=== PATIENT | male | born 1990 | race African-American/Black ===

== ENCOUNTER 2017-08-10 15:10 | Emergency (ER) | payer OTHER ==
--- NOTE | 2017-08-10 16:22 | RAD ---
RIGHT KNEE FOUR VIEWS: 08/10/17 HISTORY: 27-year-old male with history of right knee pain following a fall in a store. There is artifact overlying the knee which somewhat obscures it from patient's clothes. No evidence f or acute fracture or dislocation. IMPRESSION: No acute fracture or dislocation. The knee is somewhat obscured by artifact. POS: [facility]
--- NOTE | 2017-08-10 16:28 | RAD ---
PORTABLE CHEST ONE VIEW: 08/10/17 at 3:19 p.m. HISTORY: Fall. FINDINGS: Comparison is made with the exam of 11/20/14. The heart size is normal. the lungs are expanded without focal areas of consolidation, pneumothorax o r pleural effusions. IMPRESSION: No radiographic evidence of acute cardiopulmonary process. POS: [facility]
--- NOTE | 2017-08-10 16:35 | RAD ---
AP PELVIS RADIOGRAPH: 08/10/17 HISTORY: Injury after a fall. FINDINGS: No fracture or dislocation is seen. Bowel gas overlies the sacrum limiting adequate evaluation of the sacrum. There is a sclerotic density in the left superior acetabular region likely related to a smal l bone island. Surgical clips overlie the left lower quadrant and left hemipelvis. IMPRESSION: No acute osseous abnormality. POS: [facility]
== END 2017-08-10 18:33 | disposition home or self-care (01) ==
LOC: ERS 15:10
DX: Z04.3 Encounter for examination and observation following other accident (principal); E78.5 Hyperlipidemia, unspecified; J45.909 Unspecified asthma, uncomplicated; F31.9 Bipolar disorder, unspecified; Z79.899 Other long term (current) drug therapy
CPT/HCPCS: 71045; 72170

== ENCOUNTER 2018-01-25 13:43 | Emergency (ER) | payer OTHER | END 2018-01-25 14:23 | disposition left against medical advice (07) | LOC: ERS 13:43 | DX: Z53.21 Procedure and treatment not carried out due to patient leaving prior to being seen by health care provider (principal) ==

== ENCOUNTER 2018-02-17 21:34 | Emergency (ER) | payer OTHER ==
[2018-02-17] MEDS ORDERED: Cyclobenzaprine 10 MG TAB ONE (22:00)
[2018-02-17] MEDS ORDERED: traMADol HCl 50 MG TAB ONE (22:00)
== END 2018-02-17 23:34 | disposition home or self-care (01) ==
LOC: ERS 21:34
DX: G44.209 Tension-type headache, unspecified, not intractable (principal); E78.5 Hyperlipidemia, unspecified; J45.909 Unspecified asthma, uncomplicated; F31.9 Bipolar disorder, unspecified; Z79.899 Other long term (current) drug therapy
CPT/HCPCS: 99284

== ENCOUNTER 2018-02-20 18:53 | Emergency (ER) | payer OTHER ==
[2018-02-20 19:37] LABS: Hemoglobin 13.6 g/dL (14.0-18.0); Mean Corpuscular HGB CONC 33.9 g/dL (32.0-36.0); Mean Corpuscular Hemoglobin 28.6 pg (27.0-31.0); Mean Corpuscular Volume 84.1 fL (78.0-98.0); Mean Platelet Volume 10.2 fL (7.4-10.4); Platelet Count 133 thou/uL (130-400); RBC Distribution Width 12.6 % (11.5-14.5); Red Blood Cell (RBC) Count 4.76 mill/uL (4.70-6.10); White Blood Cell (WBC) Count 4.3 thou/uL (4.8-10.8)
[2018-02-20 19:56] LABS: Acetaminophen Less than 6.0 mcg/mL (10.0-30.0); Alcohol Less than 10 mg/dL (Less than 10); Salicylate Less than 8.0 mg/dL (15.0-30.0)
[2018-02-20 19:57] LABS: ALT (SGPT) 26 U/L (8-55); AST (SGOT) 12 U/L (5-34); Albumin 4.1 g/dL (3.5-5.0); Alkaline Phosphatase 64 U/L (40-150); Anion Gap 11 mmol/L (10-20); BUN (Urea Nitrogen) 10 mg/dL (8.9-20.6); Bilirubin, Total 0.4 mg/dL (0.2-1.2); CK (CPK) 122 U/L (30-200); Calc. Creatinine Clearance 0 mL/min (70-130); Calcium 9.5 mg/dL (7.8-10.44); Carbon Dioxide 27 mmol/L (22-29); Chloride 103 mmol/L (98-107); Estimated GFR-MDRD Greater than 90; Globulin 2.8 g/dL (2.4-3.5); Potassium 4.6 mmol/L (3.5-5.1); Protein, Total 6.9 g/dL (6.0-8.3); Sodium 136 mmol/L (136-145)
[2018-02-20 19:58] LABS: Eosinophils 1 % (0-10); Lymphocytes 39 % (21-51); MDiff Complete? YES; Monocytes 13 % (0-10); Neutrophil 44 % (42-75); PLT Morphology Comment Appears Adequate; RBC Morphology Normal; Reactive Lymphocytes 1 % (0-10)
[2018-02-20 20:48] LABS: Glucose 52 mg/dL (70-105)
--- NOTE | 2018-02-20 21:04 | RAD ---
RIGHT FOOT RADIOGRAPH THREE VIEWS: 02/20/18 PROVIDED CLINICAL HISTORY: Right foot swelling. FINDINGS: There is marked soft tissue prominence at the dorsum of the foot. Surgical clips are seen at the ant erior aspect of the distal foreleg. There is no evidence for fracture or other acute osseous abnormal ity. If there is persistent clinical concern, conservative management and followup imaging are advise d. IMPRESSION: As above. POS: [facility]
[2018-02-20] MEDS ORDERED: Cephalexin 250 MG CAP ONE (21:57)
[2018-02-20 23:18] LABS: Bilirubin Negative (Negative); Blood, Urine Negative (Negative); Clarity CLEAR (Clear); Glucose, Urine (Dipstick) Negative (Negative); Leukocyte Negative (Negative); Nitrite Negative (Negative); Protein, Urine (Dipstick) Negative (Neg-Trace); Specific Gravity, Urine 1.017 (1.002-1.036); Urobilinogen 0.2 mg/dL (0.2-1.0); pH, Urine 5.5 (5.0-9.0)
[2018-02-20 23:27] LABS: Amphetamine Not Detected (NotDetected); Barbiturates Screen Not Detected (NotDetected); Benzodiazepine Screen Not Detected (NotDetected); Cocaine Metabolite Screen Not Detected (NotDetected); Medtox Control Line Valid? VALID (VALID); Medtox Reader # READER 1; Methadone Not Detected (NotDetected); Methamphetamine Not Detected (NotDetected); Opiate Screen Not Detected (NotDetected); Oxycodone Screen Not Detected (NotDetected); Phencyclidine (PCP) Not Detected (NotDetected); THC/Cannabinoid Screen Detected (NotDetected); Tricyclic Screen Not Detected (NotDetected)
[2018-02-21] MEDS ORDERED: Propranolol 40 MG TAB PO SCH ×2 (10:00→19:30)
[2018-02-21] MEDS ORDERED: Cephalexin 250 MG CAP ONE ×2 (10:08→21:13)
[2018-02-22] MEDS ORDERED: Propranolol 40 MG TAB PO SCH (07:00)
[2018-02-22] MEDS ORDERED: Cephalexin 250 MG CAP PO SCH (07:00)
== END 2018-02-22 14:08 | disposition home or self-care (01) ==
LOC: ERS 18:53
DX: F32.9 Major depressive disorder, single episode, unspecified (principal); L03.031 Cellulitis of right toe; R45.851 Suicidal ideations; E78.5 Hyperlipidemia, unspecified; J45.909 Unspecified asthma, uncomplicated; F31.9 Bipolar disorder, unspecified; Z79.899 Other long term (current) drug therapy
CPT/HCPCS: 36415; 36416; 80053; 80306; 80307; 81003; 82550; 84443; 85025

== ENCOUNTER 2018-10-23 12:02 | Outpatient (CLI) | payer OTHER ==
[2018-10-23] MEDS ORDERED: Gadobenate Dimeglumine 529 MG/1 ML (20ML VIAL) ONE ×2 (15:52)
--- NOTE | 2018-10-23 16:00 | MRI ---
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 Tremors. Follow-up of abnormal T -spine MRI. COMPARISON: 09/21/2016. FINDINGS: There is kyphosis, with apex of curvature at approximately T6-7. There is levoscoliosis with apex of curvature also at approximately T6-7. Mild anterior wedge compression deformities of T6 and T7 without bone marrow edema. No central spinal canal stenosis at any level. Instead, the spinal canal a nd thecal sac are capacious throughout the thoracic spine. Conus medullaris terminates at L1. The spinal cord has a somewhat distorted, triangular shape as seen on axial images, as previously demonst rated. On the previous T2 weighted axial images, pulsation artifact from the aorta degraded the images of the spinal cord on axial T2-weighted sequence. Currently, there is the same pulsation artif act, but it is slightly less severe. There does appear to be intramedullary T2 hyperintense signal abnormality throughout most of the thoracic spinal cord, but without abnormal enhancement. The previously described very irregularly-shaped, enhancing infiltrative lesion in the left anterior prevertebral space at the upper levels of the thoracic spine, contiguous with the left medial pleura, has not significantly changed. It is hyperintense on T2-weighted images and STIR, is hypointe nse on precontrast T1-weighted images, and enhances. Upper extent is at approximately C7-T1 level, surrounding the left first rib proximal aspect. That first rib is a severely narrowed ribbon rib, see n in NF type I. Its inferior edge is at T4-5. It scallops the left side of the body of T2. IMPRESSION: 1. 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 It invades the left C7-T1 and left T1-2 neural foramina, and additional left neural foramina in the cerv ical spine. These are manifestations of neurofibromatosis type I. 2. Kyphoscoliosis. This is a manifestation of neurofibromatosis type I. 3. Diffuse dural ectasia. This is a manifestation of neurofibromatosis type I. 4. Extensive intramedullary signal abnormality throughout the entire thoracic spinal cord. This may r epresent demyelinating plaque of multiple sclerosis as mentioned in the history. 5. No significant interval change since 2017.
--- NOTE | 2018-10-23 16:44 | MRI ---
BRAIN MRI WITH AND WITHOUT CONTRAST: 10/23/18 HISTORY: Multiple sclerosis. Tremors. COMPARISON: 08/25/16, 03/29/14. FINDINGS: No hemorrhage on the axial gradient sequence. Calvarium has a normal T1 marrow signal intensity. Midline brain parenchymal structures are unremarka ble. Essentially stable T2 and FLAIR white matter hyperintensities. Redemonstration of abnormal signal int ensity involving the posterior right aspect of the corpus callosum measuring 2.2 x 1.2 cm (previously measuring 1.3 x 2.8 cm). There are no new significant T2 or FLAIR white matter hyperintensities. The re is no evidence of enhancement or restricted diffusion to suggest active demyelination. Cortical cole-white matter differentiation is preserved. Brain volume less than expected for patient's age. Central arterial flow voids are maintained. Small mucous retention cyst in the left maxillary sinus. No pathologic enhancement of the brain parenchyma. IMPRESSION: 1. Extensive T2 and FLAIR white matter hyperintensities, compatible with patient's history of mu ltiple sclerosis. Absent restricted diffusion. Absent enhancement. No evidence of an actively demyeli nating plaque. 2. Brain volume, less than expected for patient's age. POS: [facility]
--- NOTE | 2018-10-23 17:48 | MRI ---
CERVICAL SPINE MRI WITH AND WITHOUT CONTRAST: 10/23/18 COMPARISON: Cervical spine MRI 09/21/16. HISTORY: Multiple sclerosis. TECHNIQUE: Multiplanar and multisequence MR imaging of the cervical spine provided with and without contrast. FINDINGS: The sagittal STIR imaging is limited by motion and demonstrates no obvious evidence for focal osseous marrow edema. There is no anterolisthesis or retrolisthesis seen within the cervical spine. The craniocervical junc tion, atlantoaxial interspace, and cervicothoracic junction appears intact. The imaged cerebellum demonstrates numerous foci of abnormal increased signal intensity consistent wi th the patient's history of multiple sclerosis. Foci of abnormal signal intensity are also seen withi n the imaged portion of the medulla inferiorly, as seen on prior imaging. There is a focus of increas ed signal intensity within the upper cervical cord to the right of midline at the axial level of the foramen magnum, stable. There are numerous foci of abnormal signal intensity on the T2 weighted imagi ng within the cervical cord, including the dorsa aspect of the cervical cord at the C2, C3 and C4 lev els. There is a small T2 hyperintense lesion within the left aspect of the cord measuring approximate ly 3 mm at the axial level of the C5 vertebral body which is likely new. Stable dorsal abnormal signa l intensity within the cervical cord at the C5-6 level and C6-7 level. C2-3: No significant central canal or neural foraminal stenosis. C3-4: No significant central canal or neural foraminal stenosis. C4-5: No significant central canal or neural foraminal stenosis. C5-6: No significant central canal or neural foraminal stenosis. C6-7: No significant central canal or neural foraminal stenosis. C7-T1: Probable right neural foraminal stenosis on the basis of facet and uncovertebral osteophyte fo rmation. No central canal or left neural foraminal stenosis. The postcontrast imaging demonstrates no abnormal enhancement involving the cervical cord associated with the above demyelinating plaques. There is an incompletely assessed enhancing lesion anterior to the C7 and T1 level to the left of midline anteriorly which is a stable finding, better assessed on C T examination of chest performed 10/06/16 and MRI of thoracic spine with and without contrast also perf ormed 10/23/18. IMPRESSION: 1. Stable foci of abnormal signal intensity within the cervical cord consistent with the patient 's history of demyelinating disease. No enhancing lesions are noted. 2. Nonspecific enhancing mass lesion associated with the anterior paraspinal soft tissues of the lower cervical and upper thoracic spine to the left of midline, better assessed on thoracic spine MR I. This may represent a plexiform neurofibroma. POS: [facility]
== END 2018-10-23 12:03 | disposition home or self-care (01) ==
LOC: BICMRI 12:02
PROVIDERS: ATTEND Nurse Practitioner Acute Care
DX: G35 Multiple sclerosis (principal); D36.10 Benign neoplasm of peripheral nerves and autonomic nervous system, unspecified; M41.9 Scoliosis, unspecified; G96.19 Other disorders of meninges, not elsewhere classified; M79.9 Soft tissue disorder, unspecified
CPT/HCPCS: 70553; 72156; 72157; A9577

== ENCOUNTER 2019-02-23 16:31 | Emergency (ER) | payer OTHER ==
[~2019-02-23 16:31] MED LIST: Magnevist 469MG/ML 20 ML VIAL ONE
[2019-02-23 17:45] LABS: #Basophils 0.1 thou/uL (0.0-0.2); #Lymphocytes 0.6 thou/uL (1.20-3.40); #Monocytes 0.7 thou/uL (0.11-0.59); #Neutrophils 4.1 thou/uL (1.40-6.50); %Basophils 1.1 % (0.0-1.0); %Eosinophils 0.6 % (0.0-10.0); %Lymphocytes 11.5 % (21.0-51.0); %Monocytes 12.9 % (0.0-10.0); Hemoglobin 14.2 g/dL (14.0-18.0); Mean Corpuscular HGB CONC 34.7 g/dL (32.0-36.0); Mean Corpuscular Hemoglobin 28.7 pg (27.0-31.0); Mean Corpuscular Volume 82.8 fL (78.0-98.0); Mean Platelet Volume 9.7 fL (7.4-10.4); Platelet Count 188 thou/uL (130-400); RBC Distribution Width 13.3 % (11.5-14.5); Red Blood Cell (RBC) Count 4.94 mill/uL (4.70-6.10); White Blood Cell (WBC) Count 5.5 thou/uL (4.8-10.8)
[2019-02-23 18:01] LABS: ALT (SGPT) 55 U/L (8-55); AST (SGOT) 15 U/L (5-34); Albumin 4.7 g/dL (3.5-5.0); Alkaline Phosphatase 77 U/L (40-110); Anion Gap 13 mmol/L (10-20); BUN (Urea Nitrogen) 11 mg/dL (8.9-20.6); Bilirubin, Total 0.7 mg/dL (0.2-1.2); CK (CPK) 115 U/L (30-200); Calc. Creatinine Clearance 0 mL/min (70-130); Calcium 9.8 mg/dL (7.8-10.44); Carbon Dioxide 26 mmol/L (22-29); Chloride 103 mmol/L (98-107); Estimated GFR-MDRD Greater than 90; Glucose 86 mg/dL (70-105); Potassium 3.9 mmol/L (3.5-5.1); Protein, Total 7.7 g/dL (6.0-8.3); Sodium 138 mmol/L (136-145)
--- NOTE | 2019-02-23 18:50 | RAD ---
PORTABLE CHEST: History: Fever. Lower extremity weakness. Comparison: 08-10-17 FINDINGS: Heart size and mediastinum are within normal limits. The lungs are clear of any focal infiltrates. No significant bony findings. IMPRESSION: No active intrathoracic disease. POS: [facility]
--- NOTE | 2019-02-23 19:00 | CT ---
CT OF BRAIN PERFORMED WITHOUT CONTRAST ENHANCEMENT: History: Generalized weakness to bilateral lower extremities, onset this morning. Multiple sclerosis. Comparison: 03-29-14 as well as an MRI study of 10-23-18. FINDINGS: Ventricular and cisternal system is mildly prominent for age. Areas of decreased attenuation of the p eriventricular white matter are more chronic in appearance and are compatible with the history of mul tiple sclerosis. No hemorrhage or mass effect demonstrated. IMPRESSION: Periventricular white matter changes most compatible with changes related to patient's multiple scler osis. It may be helpful to obtain a follow up MRI on a non-emergent basis for comparison to the previ ous MRI study for change. POS: [facility]
--- NOTE | 2019-02-23 20:23 | MRI ---
MRI THORACIC SPINE PERFORMED WITH AND WITHOUT CONTRAST ENHANCEMENT: Comparison: 10-23-18 History: Patient has a history of neurofibromatosis. Also MS. Numbness in bilateral legs. FINDINGS: Scoliotic change to the spine is again noted. Dural ectasia is again seen. The area of enhancement along the left side of the upper thoracic spine extending from the C7-T1 leve l to approximately the T4-5 level is felt to represent plexiform neurofibromatosis changes and is sta ble. There is also some slightly asymmetric changes seen on the left side at the T7 level. This is si milar to the prior examination. I am not sure if this asymmetry is just being caused by the scoliosis of this represents some other plexiform changes. The cord is somewhat atrophic in appearance with changes that are similar to the previous exam. No si gns for canal stenosis. IMPRESSION: 1. Kyphoscoliosis and dural ectasia. These would be characteristic of dural fibromatosis type I. 2. 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 There is also a questionable slight area of asymmetric enhancement o n the left side at T7, also unchanged. 3. No signs of canal stenosis. 4. Atrophic appearing cord, unchanged since the prior exam. POS: [facility]
[2019-02-23] MEDS ORDERED: traMADol HCl 50 MG TAB ONE (21:15)
--- NOTE | 2019-02-23 21:16 | MRI ---
MRI LUMBAR SPINE PERFORMED WITH AND WITHOUT CONTRAST ENHANCEMENT: History: Bilateral lower extremity numbness. History of neurofibromatosis and multiple sclerosis. FINDINGS: Vertebral bodies maintain normal height. There is prominent scalloping of the posterior margins of L4 , L5, and to a lesser extent S1, with marked dural ectasia which is characteristic of neurofibromatos is. There are no signs of canal or foraminal stenosis. There is enhancement and scalloping along the left sacrum. This is consistent with an area of plexifo rm neurofibroma, partially visualized on this examination. IMPRESSION: Marked dural ectasia and scalloping to the posterior borders of L4, L5 and S1. Changes are compatible with neurofibromatosis. 2. Enhancement and scalloping along the posterior border of the left side of the sacrum. These change s are compatible with a plexiform neurofibroma in this area. 3. No signs of any canal stenosis. POS: [facility]
--- NOTE | 2019-02-23 23:02 | PDOC.BPN ---
<Kashmir Decker - Last Filed: 02/23/19 23:13> - Brief Progress Note I, Kashmir Decker, DO have sen and examined the patient with Dr. Cazares and agree with the above history and physical exam. Pt with PMH of NF1 and MS presents for generalized weakness; however, on exam for admission pt reports improvement in symptoms. Offered admission vs close OP f/u and pt opted for close OP f/u and to be seen in clinic tomorrow. ER workup negative for acute process. Physical exam and HPI consistent with viral URI. Flu neg in ER. Recommend symptomatic control with OTC medications and adequate po fluid hydration. Pt discahrged to home from ER with instruction to f/u in clinic tomorrow. PRN medications for URI symptoms control. <Georgi Cazares - Last Filed: 02/24/19 07:16> - Brief Progress Note HPI: Pt presented to the ED tonight w/ complaints of BLE generalized weakness. Pt has PMHx of neurofribromatosis type 1 and multiple sclerosis. Pt and accompanying lanolin plant operator stated that he felt fine upon waking this morning but when lanolin plant operator returned this afternoon he was unable to get himself out of bed. Pt normally gets around home utilizing a wheelchair 2/2 chronic lower extremity weakness. Pt states that this generalized lower extremity weakness has occurred several times in the past and he has treated it with rest and his sx normally resolve within 24 hours. Lead Applications Developer called EMS tonight because she was unable to get into the patients apartment since he was stuck in bed. She then convinced the pt to come in to be evaluated. Pt last received steroids over a month, he states this was for increased tremor sx. ROS: + Low grade fever, congestion, dry cough, lower extremity weakness, fatigue - Chills, nausea, vomiting, diarrhea, abdominal pain, SOB, CP, headache PE: Gen: NAD, awake, alert, oriented HEENT: Pale TM, MMM, mild erythema of posterior oropharynx, chronic decreased vision RESP: CTAB, no resp distress CARD: RRR, no murmur MSK: 1/5 strength of bilateral LE (pt and lanolin plant operator reports near baseline), 4/5 strength of bilateral upper extremities SKIN: Diffuse neurofibromas A/P Viral Illness - Sx and low grade fever suggestive of viral URI - In setting of MS pt viral illness can manifest w/ neurologic sx as above - CT brain and Spine MRI negative for new lesions or acute changes - Laboratory workup negative for signs of bacterial infection - Vitals Stable Findings were discussed w/ pt and lanolin plant operator. Admission with continued monitoring was offered to the pt but he adamantly requested discharge to home. He and lanolin plant operator were made aware of risks and return precautions and expressed understanding. Pt and lanolin plant operator agreed to follow up in clinic tomorrow. Georgi Cazares PGY 1 <Jose Stanley - Last Filed: 02/24/19 08:46> Addendum - Attending - Attending Attestation Date/Time: 02/24/19 [id number] I personally evaluated the patient and discussed the management with Dr. Brianne Cazares. I agree with the History, Examination, Assessment and Plan documented above with any addition or exceptions noted below. Mr Schroeder has a viral URI, and may be having a MS flare, but he does not quite meet the clinical criteria. We encouraged overnight observation, but [employer] declined. He is willing to have appt in the morning at our clinic in follow up. This will be reasonable given his normal vitals and near baseline motor function.
== END 2019-02-23 22:25 | disposition home or self-care (01) ==
LOC: ERS 16:31
DX: M62.81 Muscle weakness (generalized) (principal); E78.5 Hyperlipidemia, unspecified; E78.00 Pure hypercholesterolemia, unspecified; J45.909 Unspecified asthma, uncomplicated; G35 Multiple sclerosis; Z79.899 Other long term (current) drug therapy
CPT/HCPCS: 36415; 70450; 71045; 72157; 72158; 80053; 82550; 85025; 85652; 86140; 87040; 87804; A9579

== ENCOUNTER 2019-04-17 10:48 | Emergency (ER) | payer OTHER ==
--- NOTE | 2019-04-17 11:42 | RAD ---
PA AND LATERAL CHEST: Date: 04/17/2019 HISTORY: Cough and congestion. FINDINGS: Heart size and mediastinum are within normal limits. Lungs are clear of any focal infiltrates. No sig nificant bony findings. IMPRESSION: No active intrathoracic disease. POS: [facility]
== END 2019-04-17 12:08 | disposition home or self-care (01) ==
LOC: ERS 10:48
DX: J18.9 Pneumonia, unspecified organism (principal); E78.5 Hyperlipidemia, unspecified; E78.00 Pure hypercholesterolemia, unspecified; J45.909 Unspecified asthma, uncomplicated; Z79.899 Other long term (current) drug therapy
CPT/HCPCS: 71046

== ENCOUNTER 2019-06-30 20:59 | Emergency (ER) | payer OTHER ==
[2019-06-30] MEDS ORDERED: HYDROcodone/Acetaminophen 5/325 mg Tablet ONE (21:33)
== END 2019-06-30 22:13 | disposition home or self-care (01) ==
LOC: ERS 20:59
DX: M54.2 Cervicalgia (principal); E78.5 Hyperlipidemia, unspecified; J45.909 Unspecified asthma, uncomplicated; W01.0XXA Fall on same level from slipping, tripping and stumbling without subsequent striking against object, initial encounter
CPT/HCPCS: 99283

== ENCOUNTER 2019-07-19 19:02 | Emergency (ER) | payer OTHER ==
[2019-07-19 20:54] LABS: #Basophils 0.1 thou/uL (0.0-0.2); #Eosinphils 0.1 thou/uL (0.0-0.7); #Lymphocytes 1.9 thou/uL (1.20-3.40); #Monocytes 0.6 thou/uL (0.11-0.59); %Basophils 1.2 % (0.0-1.0); %Eosinophils 1.5 % (0.0-10.0); %Lymphocytes 33.6 % (21.0-51.0); %Monocytes 10.6 % (0.0-10.0); Hemoglobin 14.9 g/dL (14.0-18.0); Mean Corpuscular HGB CONC 33.3 g/dL (32.0-36.0); Mean Corpuscular Hemoglobin 28.2 pg (27.0-31.0); Mean Corpuscular Volume 84.7 fL (78.0-98.0); Mean Platelet Volume 10.6 fL (7.4-10.4); Platelet Count 191 thou/uL (130-400); RBC Distribution Width 13.7 % (11.5-14.5); Red Blood Cell (RBC) Count 5.28 mill/uL (4.70-6.10); White Blood Cell (WBC) Count 5.6 thou/uL (4.8-10.8)
[2019-07-19 21:15] LABS: ALT (SGPT) 68 U/L (8-55); AST (SGOT) 24 U/L (5-34); Albumin 4.6 g/dL (3.5-5.0); Alkaline Phosphatase 81 U/L (40-110); Anion Gap 15 mmol/L (10-20); BUN (Urea Nitrogen) 13 mg/dL (8.9-20.6); Bilirubin, Total 0.4 mg/dL (0.2-1.2); Calc. Creatinine Clearance 0 mL/min (70-130); Carbon Dioxide 24 mmol/L (22-29); Chloride 104 mmol/L (98-107); Estimated GFR-MDRD Greater than 90; Globulin 3.2 g/dL (2.4-3.5); Glucose 74 mg/dL (70-105); Potassium 3.5 mmol/L (3.5-5.1); Protein, Total 7.8 g/dL (6.0-8.3); Sodium 139 mmol/L (136-145)
[2019-07-19] MEDS ORDERED: Dexamethasone 4 mg/ml Vial ONE (23:17)
--- NOTE | 2019-07-20 07:35 | CT ---
CT OF THE BRAIN WITHOUT CONTRAST: Date: 07/19/2019 COMPARISON: 02/23/2019. HISTORY: Weakness. Multiple sclerosis with possible MS flair. TECHNIQUE: Multiple contiguous axial images were obtained in a CT of the brain without contrast. FINDINGS: There are scattered hypodensities in the subcortical and periventricular white matter, likely seconda ry to the patient's known MS. These are grossly unchanged compared to the prior examination. There is no evidence of hydrocephalus, intracranial hemorrhage, or extra-axial fluid collection. The calvarium and overlying soft tissues are unremarkable. The visualized paranasal sinuses and masto id air cells are well aerated. IMPRESSION: 1. No obvious acute intracranial abnormality. 2. Hypodensities in the white matter likely secondary to patient's known MS. POS: [facility]
== END 2019-07-19 23:05 | disposition home or self-care (01) ==
LOC: ERS 19:02
DX: R53.1 Weakness (principal); E78.5 Hyperlipidemia, unspecified; E78.00 Pure hypercholesterolemia, unspecified; J45.909 Unspecified asthma, uncomplicated; G35 Multiple sclerosis; F31.9 Bipolar disorder, unspecified; Z79.899 Other long term (current) drug therapy
CPT/HCPCS: 36415; 70450; 80053; 85025; 96374; J1100

== ENCOUNTER 2019-07-21 19:08 | Emergency (ER) | payer OTHER ==
[2019-07-21] MEDS ORDERED: traMADol HCl 50 MG TAB ONE (20:15)
--- NOTE | 2019-07-21 20:42 | CT ---
Exam: Thoracic spine CT without contrast HISTORY: Fall. Pain. Trauma. Multiple sclerosis. Neural fibromatosis. COMPARISON: None Correlation: Thoracic spine MRI 02/23/2019 FINDINGS: Stable rightward scoliotic curvature of the thoracic spine. Central spinal canal and neural foramina are patent. Evaluation is limited due to technique. Thoracic spine vertebral body height is maintained. No thoracic spine fracture. No paraspinal hematom a or fat stranding. Visualized trachea and central bronchi are patent. Chronic lung parenchymal changes are suspected. Sm all blebs in the right lower lobe. IMPRESSION: No fracture.
--- NOTE | 2019-07-21 20:55 | CT ---
Exam: Lumbar spine CT without contrast HISTORY: Trauma. Pain. Fall. History of neurofibromatosis and sclerosis COMPARISON: None Correlation: Lumbar spine MRI 02/23/2019 FINDINGS: Lumbar spine vertebral body height is maintained. No fractures. No spondylolisthesis or spondylolysis . No paraspinal or retroperitoneal mass, lymphadenopathy or hematoma. Limited evaluation of the contents of the central spinal canal and neural foramina due to technique. No evidence of significant central canal stenosis. There is prominence of the central spinal canal at L4, L5 and S1 with bony remodeling of the associated vertebral body, compatible with dural ectasia . Findings are similar to previous MRI. Visualized sacrum and bony pelvis appear to be intact. Residual fat appears to be preserved. IMPRESSION: No fracture.
== END 2019-07-21 22:46 | disposition home or self-care (01) ==
LOC: ERS 19:08
DX: M54.6 Pain in thoracic spine (principal); M54.5 Low back pain; G35 Multiple sclerosis; E78.5 Hyperlipidemia, unspecified; E78.00 Pure hypercholesterolemia, unspecified; J45.909 Unspecified asthma, uncomplicated; F31.9 Bipolar disorder, unspecified; Z79.899 Other long term (current) drug therapy; W01.0XXA Fall on same level from slipping, tripping and stumbling without subsequent striking against object, initial encounter
CPT/HCPCS: 72128; 72131

== ENCOUNTER 2021-09-19 18:49 | Emergency (ER) | payer OTHER ==
[2021-09-19] MEDS ORDERED: Ketorolac Tromethamine 30 MG/ML VIAL ONE (19:09)
== END 2021-09-19 20:50 | disposition home or self-care (01) ==
LOC: ERS 18:49
DX: S16.1XXA Strain of muscle, fascia and tendon at neck level, initial encounter (principal); E78.5 Hyperlipidemia, unspecified; E78.00 Pure hypercholesterolemia, unspecified; J45.909 Unspecified asthma, uncomplicated; G35 Multiple sclerosis; W05.0XXA Fall from non-moving wheelchair, initial encounter; Y92.002 Bathroom of unspecified non-institutional (private) residence as the place of occurrence of the external cause
CPT/HCPCS: 72125; 96374; J1885

== ENCOUNTER 2022-12-09 23:42 | Emergency (ER) | payer OTHER ==
[2022-12-10 00:39] LABS: #Eosinphils 0.1 thou/uL (0.0-0.7); #Monocytes 0.4 thou/uL (0.11-0.59); #Neutrophils 2.9 thou/uL (1.40-6.50); %Basophils 0.9 % (0.0-1.0); %Eosinophils 1.5 % (0.0-10.0); %Lymphocytes 26.2 % (21.0-51.0); %Monocytes 8.4 % (0.0-10.0); %Neutrophils 62.6 % (42.0-75.0); Hematocrit 45.5 % (42.0-52.0); Hemoglobin 15.4 g/dL (14.0-18.0); Mean Corpuscular HGB CONC 33.8 g/dL (32.0-36.0); Mean Corpuscular Hemoglobin 27.3 pg (27.0-31.0); Mean Corpuscular Volume 80.7 fl (78.0-98.0); Mean Platelet Volume 11.5 fL (7.4-10.4); Platelet Count 254 10x3/uL (130-400); RBC Distribution Width 14.4 % (11.5-14.5); Red Blood Cell (RBC) Count 5.64 mill/uL (4.70-6.10); White Blood Cell (WBC) Count 4.7 10x3/uL (4.8-10.8)
[2022-12-10 01:04] LABS: ALT (SGPT) 19 U/L (8-55); AST (SGOT) 11 U/L (5-34); Albumin 4.7 g/dL (3.5-5.0); Alkaline Phosphatase 82 U/L (40-110); Anion Gap 15 mmol/L (10-20); BUN (Urea Nitrogen) 14 mg/dL (8.9-20.6); Bilirubin, Total 0.7 mg/dL (0.2-1.2); CK (CPK) 95 U/L (30-200); Calc. Creatinine Clearance 0 mL/min (70-130); Calcium 10.3 mg/dL (7.8-10.44); Carbon Dioxide 27 mmol/L (22-29); Chloride 103 mmol/L (98-107); Estimated GFR 118; Globulin 3.5 g/dL (2.4-3.5); Glucose 84 mg/dL (70-105); Potassium 4.2 mmol/L (3.5-5.1); Protein, Total 8.2 g/dL (6.0-8.3); Sodium 141 mmol/L (136-145)
[2022-12-10] MEDS ORDERED: Iopamidol-370 76% 500 ML MDV (1 ML CHARGE) ONE (10:15)
== END 2022-12-10 08:51 | disposition home or self-care (01) ==
LOC: ERS 23:42
DX: S80.01XA Contusion of right knee, initial encounter (principal); M54.50 Low back pain, unspecified; K56.41 Fecal impaction; E78.00 Pure hypercholesterolemia, unspecified; W18.30XA Fall on same level, unspecified, initial encounter
CPT/HCPCS: 36415; 70450; 71260; 72125; 74177; 80053; 82550; 85025; Q9967

== ENCOUNTER 2022-12-13 22:38 | Inpatient (IN) | payer OTHER ==
[~2022-12-13 22:38] MED LIST changes: +Iopamidol-370 76% 500 ML MDV (1 ML CHARGE) ONE; -Magnevist 469MG/ML 20 ML VIAL ONE
[2022-12-13 23:35] LABS: #Monocytes 0.6 thou/uL (0.11-0.59); %Basophils 0.6 % (0.0-1.0); %Eosinophils 0.5 % (0.0-10.0); %Lymphocytes 11.3 % (21.0-51.0); %Monocytes 8.6 % (0.0-10.0); %Neutrophils 78.5 % (42.0-75.0); Hematocrit 45.5 % (42.0-52.0); Hemoglobin 15.7 g/dL (14.0-18.0); Mean Corpuscular HGB CONC 34.5 g/dL (32.0-36.0); Mean Corpuscular Hemoglobin 27.4 pg (27.0-31.0); Mean Corpuscular Volume 79.4 fl (78.0-98.0); Mean Platelet Volume 12.1 fL (7.4-10.4); Platelet Count 219 10x3/uL (130-400); RBC Distribution Width 14.4 % (11.5-14.5); Red Blood Cell (RBC) Count 5.73 mill/uL (4.70-6.10); White Blood Cell (WBC) Count 6.4 10x3/uL (4.8-10.8)
[2022-12-14 00:01] LABS: Troponin I Less than 0.010 ng/mL (< 0.028)
[2022-12-14 00:21] LABS: Bacteria/HPF None Seen HPF (None Seen); Bilirubin Negative (Negative); Blood, Urine Negative (Negative); CAUTI Indications for Culture Alt mental st,lethar; Clarity Clear (Clear); Glucose, Urine (Dipstick) Normal (Negative); Ketone, Urine Negative (Negative); Leukocyte Negative Leu/uL (Negative); Nitrite Negative (Negative); Protein, Urine (Dipstick) Negative (Neg-Trace); RBC/HPF 0-3 HPF (0-3); Specific Gravity, Urine 1.048 (1.002-1.036); Squamous Epithelial None Seen HPF (0-3); Urobilinogen Normal mg/dL (Less than 2); WBC/HPF 0-3 HPF (0-3); pH, Urine 5.5 (5.0-9.0)
[2022-12-14 00:22] LABS: Urine Culture Reflex No No
[2022-12-14 00:30] LABS: Amphetamine Not Detected (NotDetected); Barbiturates Screen Not Detected (NotDetected); Benzodiazepine Screen Not Detected (NotDetected); Cocaine Metabolite Screen Not Detected (NotDetected); Methadone Not Detected (NotDetected); Methamphetamine Not Detected (NotDetected); Opiate Screen Not Detected (NotDetected); Oxycodone Screen Not Detected (NotDetected); Phencyclidine (PCP) Not Detected (NotDetected); THC/Cannabinoid Screen Not Detected (NotDetected); Tricyclic Screen Not Detected (NotDetected)
[2022-12-14 00:45] LABS: Acetaminophen Less than 10 mcg/mL (10.0-30.0); Alcohol Less than 10.0 mg/dL (Less than 10); Salicylate Less than 8.0 mg/dL (15.0-30.0)
[2022-12-14 00:46] LABS: ALT (SGPT) 37 U/L (8-55); AST (SGOT) 30 U/L (5-34); Alkaline Phosphatase 91 U/L (40-110); Anion Gap 20 mmol/L (10-20); BUN (Urea Nitrogen) 10 mg/dL (8.9-20.6); Bilirubin, Total 0.4 mg/dL (0.2-1.2); CK (CPK) 108 U/L (30-200); Calc. Creatinine Clearance 0 mL/min (70-130); Calcium 10.1 mg/dL (7.8-10.44); Carbon Dioxide 19 mmol/L (22-29); Chloride 104 mmol/L (98-107); Estimated GFR 119; Globulin 3.6 g/dL (2.4-3.5); Glucose 83 mg/dL (70-105); Potassium 5.1 mmol/L (3.5-5.1); Protein, Total 8.6 g/dL (6.0-8.3); Sodium 138 mmol/L (136-145)
[2022-12-14] MEDS ORDERED: Ondansetron PF 4 MG/2 ML Vial IVP PRN ×2 (02:00→02:33)
[2022-12-14] MEDS ORDERED: Ondansetron ODT 4 MG TAB SL PRN ×2 (02:00→02:33)
[2022-12-14] MEDS ORDERED: Acetaminophen 325 MG TAB PO PRN (02:33)
[2022-12-14 03:10] LABS: Cardiac Risk 5.5 (Less than 4.5)
[2022-12-14 04:36] VITALS: BMI 19.4
[2022-12-14] MEDS ORDERED: methylPREDNISolone Sod Succ/PF 500 MG in Sodium Chloride 0.9% 250 ML 250 ML IVPB SCH (05:00)
[2022-12-14] MEDS: Lactated Ringer's 1,000 ML IV SCH ×2 (06:01→23:55)
[2022-12-14] MEDS: Pantoprazole 40 MG VIAL IVP SCH (09:31)
[2022-12-14] MEDS ORDERED: HumaLOG 300 UNITS/3 ML VIAL SC PRN ×2 (09:39)
[2022-12-14] MEDS ORDERED: Glucagon 1 MG/ML KIT IM PRN (09:39)
[2022-12-14] MEDS ORDERED: Dextrose 50% Abboject 50 ML SYRINGE SLOW IVP PRN (09:39)
[2022-12-14] MEDS ORDERED: Dextrose 5% in Water 1,000 ML IV PRN (09:39)
[2022-12-14] MEDS ORDERED: Magnevist 469MG/ML 20 ML VIAL ONE ×2 (09:54)
[2022-12-14] MEDS ORDERED: methylPREDNISolone Sod Succ/PF 1,000 MG in Sodium Chloride 0.9% 250 ML 250 ML IVPB SCH (16:09)
[2022-12-14] MEDS ORDERED: Atorvastatin Calcium 20 MG TAB PO SCH (21:00)
[2022-12-15 06:13] LABS: #Monocytes 0.3 thou/uL (0.11-0.59); %Lymphocytes 24.1 % (21.0-51.0); %Monocytes 7.3 % (0.0-10.0); %Neutrophils 68.1 % (42.0-75.0); Hematocrit 37.6 % (42.0-52.0); Hemoglobin 13.1 g/dL (14.0-18.0); Mean Corpuscular HGB CONC 34.8 g/dL (32.0-36.0); Mean Corpuscular Hemoglobin 27.7 pg (27.0-31.0); Mean Corpuscular Volume 79.5 fl (78.0-98.0); Mean Platelet Volume 11.6 fL (7.4-10.4); Platelet Count 202 10x3/uL (130-400); RBC Distribution Width 14.4 % (11.5-14.5); Red Blood Cell (RBC) Count 4.73 mill/uL (4.70-6.10); White Blood Cell (WBC) Count 4.4 10x3/uL (4.8-10.8)
[2022-12-15 06:41] LABS: Anion Gap 13 mmol/L (10-20); BUN (Urea Nitrogen) 11 mg/dL (8.9-20.6); Calc. Creatinine Clearance 118 mL/min (70-130); Calcium 9.7 mg/dL (7.8-10.44); Carbon Dioxide 27 mmol/L (22-29); Chloride 100 mmol/L (98-107); Estimated GFR 122; Glucose 121 mg/dL (70-105); Sodium 136 mmol/L (136-145)
[2022-12-15] MEDS ORDERED: methylPREDNISolone Sod Succ 1 GM in Sodium Chloride 0.9% 250 ML 250 ML IVPB SCH (09:00)
[2022-12-15] MEDS: Pantoprazole 40 MG VIAL IVP SCH (09:40)
[2022-12-15] MEDS: Lactated Ringer's 1,000 ML IV SCH (10:21)
[2022-12-15 15:32] VITALS: TEMP 97.6
[2022-12-15 19:16] VITALS: BP 112/62
[2022-12-17] MEDS ORDERED: FLU VACC QS2023-24(6MOS UP)/PF 60 MCG/0.5 ML SYRINGE IM ONE (09:00)
== END 2022-12-15 20:00 | disposition home or self-care (01) | DRG 641 ==
LOC: ERS 22:38 → 2NO 12-14 01:55
PROVIDERS: ADMIT Student in an Organized Health Care Education/Training Program; ATTEND Student in an Organized Health Care Education/Training Program
PROC: 4A00X4Z Measurement of Central Nervous Electrical Activity, External Approach (ICD-10-PCS; principal; 2022-12-15)
DX: E44.0 Moderate protein-calorie malnutrition (principal); R47.01 Aphasia; Z68.1 Body mass index [BMI] 19.9 or less, adult; E86.0 Dehydration; R62.7 Adult failure to thrive; Z88.8 Allergy status to other drugs, medicaments and biological substances; Z66 Do not resuscitate; E78.5 Hyperlipidemia, unspecified; F32.9 Major depressive disorder, single episode, unspecified; F41.9 Anxiety disorder, unspecified; Z98.890 Other specified postprocedural states; Z74.09 Other reduced mobility
CPT/HCPCS: 36415; 36416; 70496; 70498; 70553; 71045; 72125; 72158; 80048; 80053; 80061; 80306; 80307; 81001; 82550; 83036; 84443; 84484; 85025; 87040; 87086; 93005; 95711; 95819; 95957; 96360; 96361; A9579; C9113; J1650; J2930; J3490; J7050; J7120; Q9967

== ENCOUNTER 2023-02-21 16:23 | Observation (INO) | payer OTHER ==
[2023-02-21 16:50] LABS: #Monocytes 0.4 thou/uL (0.11-0.59); #Neutrophils 4.5 thou/uL (1.40-6.50); %Basophils 0.7 % (0.0-1.0); %Eosinophils 0.5 % (0.0-10.0); %Lymphocytes 18.4 % (21.0-51.0); %Monocytes 6.8 % (0.0-10.0); %Neutrophils 73.1 % (42.0-75.0); Hematocrit 42.3 % (42.0-52.0); Hemoglobin 14.2 g/dL (14.0-18.0); Mean Corpuscular HGB CONC 33.6 g/dL (32.0-36.0); Mean Corpuscular Volume 80.6 fl (78.0-98.0); Mean Platelet Volume 11.5 fL (7.4-10.4); Platelet Count 237 10x3/uL (130-400); RBC Distribution Width 15.2 % (11.5-14.5); Red Blood Cell (RBC) Count 5.25 mill/uL (4.70-6.10); White Blood Cell (WBC) Count 6.1 10x3/uL (4.8-10.8)
[2023-02-21 17:16] LABS: ALT (SGPT) 32 U/L (8-55); AST (SGOT) 18 U/L (5-34); Albumin 4.2 g/dL (3.5-5.0); Alkaline Phosphatase 75 U/L (40-110); Anion Gap 16 mmol/L (10-20); BUN (Urea Nitrogen) 21 mg/dL (8.9-20.6); Bilirubin, Total 0.5 mg/dL (0.2-1.2); CK (CPK) 155 U/L (30-200); Calc. Creatinine Clearance 0 mL/min (70-130); Calcium 9.6 mg/dL (7.8-10.44); Carbon Dioxide 21 mmol/L (22-29); Chloride 104 mmol/L (98-107); Estimated GFR 121; Globulin 3.3 g/dL (2.4-3.5); Glucose 92 mg/dL (70-105); Lipase 21 U/L (8-78); Potassium 4.2 mmol/L (3.5-5.1); Protein, Total 7.5 g/dL (6.0-8.3); Sodium 137 mmol/L (136-145)
[2023-02-21 18:57] LABS: Bacteria/HPF None Seen HPF (None Seen); Bilirubin Negative (Negative); Blood, Urine Negative (Negative); CAUTI Indications for Culture Dysuria,urgency,freq; Clarity Clear (Clear); Glucose, Urine (Dipstick) Normal (Negative); Ketone, Urine Trace mg/dL (Negative); Leukocyte Negative Leu/uL (Negative); Nitrite Negative (Negative); Protein, Urine (Dipstick) Negative (Neg-Trace); RBC/HPF 0-3 HPF (0-3); Specific Gravity, Urine 1.019 (1.002-1.036); Squamous Epithelial None Seen HPF (0-3); Urobilinogen Normal mg/dL (Less than 2); WBC/HPF 0-3 HPF (0-3); pH, Urine 6.5 (5.0-9.0)
[2023-02-21 19:14] LABS: Urine Culture Reflex No No
[2023-02-21] MEDS ORDERED: Albuterol 200 PUFF (6.7GM INHALER) INH PRN (20:43)
[2023-02-21 21:51] VITALS: BMI 20.7
[2023-02-22] MEDS: Atorvastatin Calcium 20 MG TAB PO SCH (19:51)
[2023-02-23 18:10] VITALS: BP 125/77; TEMP 98.7
[2023-02-23] MEDS: Atorvastatin Calcium 20 MG TAB PO SCH (20:20)
== END 2023-02-23 21:00 ==
LOC: ERS 16:23 → SURG A 18:41
PROVIDERS: ADMIT Family Medicine; ATTEND Family Medicine
PROC: 0T9B70Z Drainage of Bladder with Drainage Device, Via Natural or Artificial Opening (ICD-10-PCS; principal; 2023-02-23)
DX: G35 Multiple sclerosis (principal); Q85.01 Neurofibromatosis, type 1; J45.909 Unspecified asthma, uncomplicated; Z88.8 Allergy status to other drugs, medicaments and biological substances; Z79.899 Other long term (current) drug therapy
CPT/HCPCS: 36415; 51701; 71045; 80053; 81001; 82550; 83690; 83735; 85025; 87086; 93005; 96360; 96372; G0378; J1650